=== PATIENT | female | born 1960 | race Caucasian/White ===

== ENCOUNTER 2023-11-13 19:18 | Inpatient (IN) | payer MEDICAID ==
[~2023-11-13] VITALS: Ht 160 cm; Wt 68.9 kg
[2023-11-13 20:33] LABS: BASOPHILS % 0.4 % (0.0-2.0); EOSINOPHILS % 9.1 % (0.0-5.0); HEMATOCRIT. 23.2 % (36.0-48.0); HEMOGLOBIN. 7.9 g/dL (12.0-16.0); LYMPHOCYTES % 13.3 % (20.0-50.0); MEAN CORPUSCULAR HEMOGLOBIN 31.7 pg (28.0-32.0); MEAN CORPUSCULAR VOLUME 93.2 fL (81.0-99.0); MEAN PLATELET VOLUME 8.3 fl (7.4-10.4); MONOCYTES % 8.6 % (2.0-8.0); NEUTROPHILS % 68.6 % (40.0-76.0); PLATELET 184 x1000/uL (130-400); RED BLOOD CELL COUNT 2.49 mill/uL (4.2-5.4); RED CELL DISTRIBUTION WIDTH 18.8 % (11.6-14.6); WHITE BLOOD COUNT 7.4 x1000/uL (4.5-11.0)
[2023-11-13 20:40] LABS: CHLORIDE 96 mEq/L (98-107); POTASSIUM 4.5 mEq/L (3.5-5.1); SODIUM 127 mEq/L (136-145)
[2023-11-13 20:41] LABS: CALCIUM 8.5 mg/dL (8.7-10.4); CARBON DIOXIDE 25 mEq/L (21-32)
[2023-11-13 20:46] LABS: GLUCOSE 145 mg/dL (70-105)
[2023-11-13 20:47] LABS: TROPONIN I HIGH SENSITIVITY 21 ng/L (3.0-34); UREA NITROGEN BLOOD 64 mg/dL (9-23)
[2023-11-13 20:48] LABS: ALANINE AMINOTRANSFERASE 17 IU/L (10-49); ALBUMIN 3.2 g/dL (3.2-4.8); ASPARTATE AMINOTRANSFERASE 30 IU/L (<34)
[2023-11-13 20:49] LABS: BILIRUBIN TOTAL 0.3 mg/dL (0.1-1.0); PROTEIN TOTAL 5.4 g/dL (6.0-8.3)
[2023-11-13 20:50] LABS: BILIRUBIN DIRECT < 0.1 mg/dL (<=3.0)
[2023-11-13 20:51] LABS: CREATININE 7.6 mg/dL (0.6-1.0)
[2023-11-13] MEDS: SODIUM CHLORIDE 0.9% 1,000 ML IV ONE (21:11)
[2023-11-13] MEDS: AMLODIPINE 10MG TABLET PO ONE (21:26)
[2023-11-13] MEDS: HYDRALAZINE 20MG/ML VIAL IV ONE (22:16)
[2023-11-13] MEDS ORDERED: ACETAMINOPHEN 325MG TABLET PO PRN ×2 (23:30)
[2023-11-13] MEDS ORDERED: ONDANSETRON HCL 4MG/2ML INJ IV PRN (23:30)
[2023-11-13] MEDS ORDERED: IPRATROPIUM/ALBUTEROL 0.5-3(2.5)MG/3ML NEB HHN PRN (23:30)
[2023-11-13] MEDS ORDERED: MAGNESIUM/ALUMINUM HYDROXIDE/SIMETHICONE 30ML UDC PO PRN (23:30)
[2023-11-13] MEDS ORDERED: DOCUSATE SODIUM 100MG CAPSULE PO PRN (23:30)
[2023-11-13] MEDS ORDERED: LORAZEPAM 0.5MG TABLET PO PRN (23:30)
[2023-11-13] MEDS ORDERED: GUAIFENESIN 200MG/10ML SUGAR FREE UDC PO PRN (23:30)
[2023-11-13] MEDS ORDERED: HYDRALAZINE 20MG/ML VIAL IV PRN (23:30)
[2023-11-13] MEDS ORDERED: DEXTROSE 50% WATER 50ML SYRINGE IV PRN (23:45)
[2023-11-14] MEDS: LABETALOL 5MG/ML 4ML INJ IV NR (00:19)
[2023-11-14 00:21] LABS: PHOSPHORUS 5.3 mg/dL (2.5-4.9)
[2023-11-14 03:59] LABS: BASOPHILS % 0.5 % (0.0-2.0); EOSINOPHILS % 8.3 % (0.0-5.0); HEMATOCRIT. 21.8 % (36.0-48.0); HEMOGLOBIN. 7.6 g/dL (12.0-16.0); LYMPHOCYTES % 16.4 % (20.0-50.0); MEAN CORPUSCULAR HEMOGLOBIN 31.9 pg (28.0-32.0); MEAN CORPUSCULAR HGB CONC 34.7 g/dL (31.0-37.0); MEAN CORPUSCULAR VOLUME 91.8 fL (81.0-99.0); MEAN PLATELET VOLUME 8.2 fl (7.4-10.4); MONOCYTES % 8.2 % (2.0-8.0); NEUTROPHILS % 66.6 % (40.0-76.0); PLATELET 179 x1000/uL (130-400); RED BLOOD CELL COUNT 2.37 mill/uL (4.2-5.4); RED CELL DISTRIBUTION WIDTH 18.6 % (11.6-14.6); WHITE BLOOD COUNT 8.1 x1000/uL (4.5-11.0)
[2023-11-14 04:19] LABS: CHLORIDE 99 mEq/L (98-107); POTASSIUM 3.8 mEq/L (3.5-5.1); SODIUM 130 mEq/L (136-145)
[2023-11-14 04:20] LABS: CALCIUM 8.2 mg/dL (8.7-10.4); CARBON DIOXIDE 23 mEq/L (21-32)
[2023-11-14 04:25] LABS: GLUCOSE 94 mg/dL (70-105); TRIGLYCERIDE 68 mg/dL (0-150); UREA NITROGEN BLOOD 69 mg/dL (9-23)
[2023-11-14 04:26] LABS: LDL CHOLESTEROL 101 mg/dL (5-100)
[2023-11-14 04:27] LABS: CHOLESTEROL 171 mg/dL (<200); HDL CHOLESTEROL 54 mg/dL (>65)
[2023-11-14 04:29] LABS: T4 FREE 1.08 ng/dL (0.89-1.76); THYROID STIMULATING HORMONE 1.33 uIU/mL (0.55-4.78)
[2023-11-14 04:53] LABS: CREATININE 7.2 mg/dL (0.6-1.0)
[2023-11-14] MEDS: BLOOD SUGAR DIAGNOSTIC STRIP TEST SCH (06:07)
[2023-11-14] MEDS ORDERED: CHOL2000 PO (06:24)
[2023-11-14] MEDS ORDERED: DAPA10TA PO (06:24)
[2023-11-14] MEDS ORDERED: SEVE800T25 PO (06:24)
[2023-11-14] MEDS ORDERED: FERR325T30 PO (06:24)
[2023-11-14] MEDS ORDERED: NIFE-33 PO (06:24)
[2023-11-14 06:29] VITALS: BP 157/68; PULSE 75; RESP 18; TEMP 36.14
[2023-11-14 06:47] VITALS: BP 157/68; PULSE 75; RESP 18; TEMP 36.114; O2SAT 97
[2023-11-14] MEDS: INSULIN LISPRO 100 UNITS/ML SUBCUT SCH (07:53)
[2023-11-14 12:00] VITALS: BP 150/64; PULSE 70; RESP 20; TEMP 36.61404; O2SAT 96
[2023-11-14 16:00] VITALS: BP 138/79; PULSE 69; RESP 18; TEMP 36.33624; O2SAT 97
[2023-11-14 18:45] VITALS: BP 182/69; PULSE 74; RESP 18; TEMP 36.55848; O2SAT 98
[2023-11-14 20:00] VITALS: BP 183/79; PULSE 75; RESP 20; TEMP 36.22512; O2SAT 100
[2023-11-14] MEDS: ATORVASTATIN CALCIUM 20MG TABLET PO SCH (21:00)
[2023-11-14] MEDS: EPOETIN ALFA-EPBX 4,000 UNIT/ML VIAL SUBCUT SCH (21:43)
[2023-11-14] MEDS: NIFEDIPINE XL 30MG TAB PO SCH (21:43)
[2023-11-15] VITALS: BP 139/58; PULSE 78; RESP 20; TEMP 36.50292; O2SAT 100
[2023-11-15 04:00] VITALS: BP 130/57; PULSE 73; RESP 19; TEMP 36.55848; O2SAT 100
[2023-11-15 07:24] LABS: POTASSIUM 3.7 mEq/L (3.5-5.1)
[2023-11-15 07:25] LABS: CALCIUM 8.2 mg/dL (8.7-10.4)
[2023-11-15 07:30] VITALS: BP 136/79; PULSE 73; RESP 18; TEMP 36.33624; O2SAT 98
[2023-11-15 07:36] LABS: CREATININE 6.9 mg/dL (0.6-1.0)
[2023-11-15 08:00] VITALS: BP 120/74; PULSE 86; RESP 16; TEMP 35.94732; O2SAT 96
[2023-11-15 08:02] LABS: BASOPHILS % 0.5 % (0.0-2.0); EOSINOPHILS % 9.7 % (0.0-5.0); HEMATOCRIT. 21.4 % (36.0-48.0); HEMOGLOBIN. 7.5 g/dL (12.0-16.0); LYMPHOCYTES % 15.3 % (20.0-50.0); MEAN CORPUSCULAR HGB CONC 34.8 g/dL (31.0-37.0); MEAN CORPUSCULAR VOLUME 91.9 fL (81.0-99.0); MEAN PLATELET VOLUME 8.5 fl (7.4-10.4); MONOCYTES % 9.6 % (2.0-8.0); NEUTROPHILS % 64.9 % (40.0-76.0); PLATELET 197 x1000/uL (130-400); RED BLOOD CELL COUNT 2.33 mill/uL (4.2-5.4); RED CELL DISTRIBUTION WIDTH 18.6 % (11.6-14.6); WHITE BLOOD COUNT 6.5 x1000/uL (4.5-11.0)
[2023-11-15] MEDS: SEVELAMER CARBONATE 800 MG TABLET PO SCH (09:27)
[2023-11-15] MEDS: FOLIC ACID/VITAMIN B COMP W-C TABLET PO SCH (09:30)
[2023-11-15 09:56] VITALS: BP 120/100; PULSE 86; TEMP 98.2; O2SAT 97
[2023-11-15 21:48] LABS: BODY FLUID RBC 74 /cu mm (0-2000); BODY FLUID WBC 38 /cu mm (0-200)
[2023-11-15 21:49] LABS: BODY FLUID MONOCYTES 16 %
== END 2023-11-15 12:12 | disposition home or self-care (01) | DRG 199 ==
LOC: ER 19:18 → 5WST 21:15 → EDBEDREQ 21:19 → EDBEDREQTM 21:19 → 7WST 11-14 05:25
PROVIDERS: ADMIT Internal Medicine; ATTEND Internal Medicine
PROC: 3E1M39Z Irrigation of Peritoneal Cavity using Dialysate, Percutaneous Approach (ICD-10-PCS; principal; 2023-11-14)
PROC: 5A1D70Z Performance of Urinary Filtration, Intermittent, Less than 6 Hours Per Day (ICD-10-PCS; 2023-11-14)
DX: I16.1 Hypertensive emergency (principal); E11.22 Type 2 diabetes mellitus with diabetic chronic kidney disease; N18.6 End stage renal disease; E83.51 Hypocalcemia; E83.39 Other disorders of phosphorus metabolism; D63.1 Anemia in chronic kidney disease; E87.1 Hypo-osmolality and hyponatremia; I12.0 Hypertensive chronic kidney disease with stage 5 chronic kidney disease or end stage renal disease; E11.65 Type 2 diabetes mellitus with hyperglycemia; I51.7 Cardiomegaly; Z79.4 Long term (current) use of insulin; Z99.2 Dependence on renal dialysis; Z79.899 Other long term (current) drug therapy; Z86.718 Personal history of other venous thrombosis and embolism; Z86.74 Personal history of sudden cardiac arrest; Z95.0 Presence of cardiac pacemaker
CPT/HCPCS: 36415; 71045; 80048; 80061; 80076; 82040; 82668; 82962; 83036; 83605; 83735; 83880; 83930; 84100; 84145; 84439; 84443; 84484; 85025; 86850; 86900; 90935; 90945; 93005; 93970; 99285; J0360; J0885; J3490; J7030

== ENCOUNTER 2023-12-31 23:23 | Inpatient (IN) | payer OTHER, MEDICAID ==
[~2023-12-31] VITALS: Ht 157.5 cm; Wt 72.6 kg
[~2023-12-31 23:23] MED LIST: CHOL2000 PO; DAPA10TA PO; FERR325T30 PO; NIFE-33 PO; SEVE800T25 PO
[2023-12-31 23:48] LABS: HEMATOCRIT. 37.7 % (36.0-48.0); HEMOGLOBIN. 12.8 g/dL (12.0-16.0); MEAN CORPUSCULAR HEMOGLOBIN 33.7 pg (28.0-32.0); MEAN CORPUSCULAR HGB CONC 33.8 g/dL (31.0-37.0); MEAN CORPUSCULAR VOLUME 99.5 fL (81.0-99.0); MEAN PLATELET VOLUME 8.2 fl (7.4-10.4); PLATELET 290 x1000/uL (130-400); RED BLOOD CELL COUNT 3.79 mill/uL (4.2-5.4); RED CELL DISTRIBUTION WIDTH 13.9 % (11.6-14.6); WHITE BLOOD COUNT 16.2 x1000/uL (4.5-11.0)
[2023-12-31 23:53] LABS: DIFFERENTIAL COMMENT 1
[2023-12-31 23:59] LABS: CARBON DIOXIDE 23 mEq/L (21-32); CHLORIDE 103 mEq/L (98-107); POTASSIUM 3.8 mEq/L (3.5-5.1); SODIUM 135 mEq/L (136-145)
[2024-01-01] VITALS (8 sets, daily range): BP systolic 118–158; BP diastolic 48–85; PULSE 64–85; RESP 16–21; TEMP 35.89176–36.61404; O2SAT 98–100
[2024-01-01 00:04] LABS: GLUCOSE 184 mg/dL (70-105)
[2024-01-01 00:05] LABS: TROPONIN I HIGH SENSITIVITY 19 ng/L (3.0-34); UREA NITROGEN BLOOD 68 mg/dL (9-23)
[2024-01-01 00:07] LABS: INR 0.9; PARTIAL THROMBOPLASTIN TIME 29.3 sec (23.4-31.0); PHOSPHORUS 5.6 mg/dL (2.5-4.9); PROTHROMBIN TIME 10.6 sec (9.6-11.0)
[2024-01-01] MEDS: PIPERACILLIN/TAZO 3.375G/50ML 50 ML IV NR (00:07)
[2024-01-01] MEDS: SODIUM CHLORIDE 0.9% 250 ML IV ONE (00:07)
[2024-01-01 00:27] LABS: ETHANOL BLOOD < 10 mg/dL (<10)
[2024-01-01 00:32] LABS: CREATININE 8.3 mg/dL (0.6-1.0)
[2024-01-01] MEDS: METOPROLOL TARTRATE 5MG/5ML VIAL IV NR (00:32)
[2024-01-01] MEDS: VANCOMYCIN 1GM PMX (XELLIA) 200 ML IV NR (00:33)
[2024-01-01] MEDS: METOPROLOL TARTRATE 25MG TABLET PO ONE (00:47)
[2024-01-01] MEDS: METOPROLOL TARTRATE 5MG/5ML VIAL IV ONE (00:59)
[2024-01-01 02:03] LABS: PLATELET ESTIMATE NORMAL
[2024-01-01] MEDS ORDERED: APIX2.5T PO (07:54)
[2024-01-01] MEDS ORDERED: T3 PO (07:55)
[2024-01-01] MEDS ORDERED: CALC0.253 MT (07:55)
[2024-01-01] MEDS ORDERED: FURO40TA5 PO (08:06)
[2024-01-01] MEDS ORDERED: CARV12.545 PO (08:06)
[2024-01-01] MEDS ORDERED: CALC667T8 PO (08:06)
[2024-01-01] MEDS ORDERED: INSU100V34 SQ (08:07)
[2024-01-01] MEDS ORDERED: NIFE-32 MT (08:08)
[2024-01-01] MEDS ORDERED: PANT40TA51 MT (08:10)
[2024-01-01] MEDS ORDERED: ONDA2VIA4 IV (08:10)
[2024-01-01] MEDS ORDERED: ACETAMINOPHEN 325MG TABLET PO PRN (10:00)
[2024-01-01] MEDS ORDERED: ONDANSETRON HCL 4MG/2ML INJ IV PRN (10:00)
[2024-01-01] MEDS: ENOXAPARIN 80MG/0.8ML SYR SUBCUT SCH (14:33)
[2024-01-01 18:56] LABS: BASOPHILS % 0.2 % (0.0-2.0); DIFFERENTIAL COMMENT 0; EOSINOPHILS % 11.5 % (0.0-5.0); HEMATOCRIT. 33.6 % (36.0-48.0); HEMOGLOBIN. 11.4 g/dL (12.0-16.0); LYMPHOCYTES % 12.2 % (20.0-50.0); MEAN CORPUSCULAR HEMOGLOBIN 34.1 pg (28.0-32.0); MEAN CORPUSCULAR HGB CONC 33.9 g/dL (31.0-37.0); MEAN CORPUSCULAR VOLUME 100.6 fL (81.0-99.0); MEAN PLATELET VOLUME 8.6 fl (7.4-10.4); NEUTROPHILS % 68.1 % (40.0-76.0); PLATELET 270 x1000/uL (130-400); RED BLOOD CELL COUNT 3.34 mill/uL (4.2-5.4); RED CELL DISTRIBUTION WIDTH 13.8 % (11.6-14.6)
[2024-01-01] MEDS ORDERED: FURO80TA3 MT (18:58)
[2024-01-01] MEDS ORDERED: APIX2.5T MT (19:00)
[2024-01-01] MEDS ORDERED: DOCU-150 PO (19:02)
[2024-01-01 19:03] LABS: POTASSIUM 3.7 mEq/L (3.5-5.1)
[2024-01-01 19:04] LABS: CALCIUM 8.3 mg/dL (8.7-10.4)
[2024-01-01] MEDS ORDERED: PANT40TA51 PO (19:04)
[2024-01-01] MEDS ORDERED: ALEN70TA79 MT (19:05)
[2024-01-01] MEDS ORDERED: FOLI0.8T23 MT (19:07)
[2024-01-01 19:11] LABS: CREATININE 8.4 mg/dL (0.6-1.0)
[2024-01-01] MEDS: METOPROLOL TARTRATE 25MG TABLET PO SCH (20:49)
[2024-01-02] VITALS (8 sets, daily range): BP systolic 95–195; BP diastolic 60–88; PULSE 62–73; RESP 16–21; TEMP 35.66952–36.33624; O2SAT 97–100
[2024-01-02] MEDS: HYDRALAZINE 20MG/ML VIAL IV PRN (01:50)
[2024-01-02 13:01] LABS: BODY FLUID MONOCYTES 35 %; BODY FLUID RBC 21 /cu mm (0-2000); BODY FLUID WBC 5 /cu mm (0-200)
[2024-01-02] MEDS ORDERED: APIX2.5T MT (13:23)
[2024-01-02] MEDS ORDERED: METO-539 MT (13:23)
[2024-01-02] MEDS: NIFEDIPINE XL 60MG TAB PO SCH (16:00)
== END 2024-01-02 17:30 | disposition home or self-care (01) | DRG 640 ==
LOC: ER 23:23 → 7EST 01-01 01:26
PROVIDERS: ADMIT Internal Medicine; ATTEND Internal Medicine
PROC: 5A1D90Z Performance of Urinary Filtration, Continuous, Greater than 18 hours Per Day (ICD-10-PCS; principal; 2024-01-01)
DX: E87.70 Fluid overload, unspecified (principal); N18.6 End stage renal disease; I12.0 Hypertensive chronic kidney disease with stage 5 chronic kidney disease or end stage renal disease; I48.0 Paroxysmal atrial fibrillation; Z20.822 Contact with and (suspected) exposure to COVID-19; D72.829 Elevated white blood cell count, unspecified; E87.1 Hypo-osmolality and hyponatremia; E83.42 Hypomagnesemia; E83.39 Other disorders of phosphorus metabolism; E11.22 Type 2 diabetes mellitus with diabetic chronic kidney disease; D64.9 Anemia, unspecified; Z95.0 Presence of cardiac pacemaker; Z99.2 Dependence on renal dialysis
CPT/HCPCS: 36415; 71045; 80048; 80320; 82962; 83605; 83735; 83880; 84100; 84145; 84484; 85025; 87426; 90935; 90945; 93005; 93306; 99291; J0360; J1650; J2543; J3370; J3490; G0480